=== PATIENT | male | born 1950 | race African-American/Black ===

== ENCOUNTER 2022-12-28 10:18 | Emergency (ER) | payer OTHER ==
[~2022-12-28] VITALS: Ht 170.2 cm; Wt 76.4 kg
--- NOTE | 2022-12-28 10:19 | NUR ---
BIBA BLS TO ER BED 5
[2022-12-28 10:20] VITALS: BP 176/85
--- NOTE | 2022-12-28 10:30 | NUR ---
72YO MALE PT VICTOR M [facility] C/O INCREASED R HAND SWELLING [id number]. PER DAUGHTER, PT W/ ONGOING INTERMITTENT EPISODES X1YEAR. HAND PRESENTS WITH MILD SWELLING , CAP REFILL <3 THROUGHOUT. DENIES PAIN AT THIS TIME, INJURY, NUMBING OR LOSS OF SENSATION. PT UNABLE TO BEND WRIST D/T SWELLING. 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 AMB W/ STEADY GAIT HX: HTN, DIABETES, HLD, STROKE NKA
[2022-12-28] MEDS ORDERED: PRED20TA5 PO (13:12)
[2022-12-28] MEDS ORDERED: IBUP-2213 PO (13:12)
--- NOTE | 2022-12-28 13:24 | NUR ---
[facility] CONTACTED. REPORT GIVEN TO SILVIA MILLER. PER SILVIA, TRANSPORTATION ETA 1430.
--- NOTE | 2022-12-28 13:59 | NUR ---
PT MOVED TO CHAIR C AWAITING TRANSPORT.
[2022-12-28 14:40] VITALS: BP 148/76
--- NOTE | 2022-12-28 14:40 | NUR ---
Patient discharged with v/s stable. Written and verbal after care instructions FOR OSTEOARTHRITIS given and explained. Patient alert, oriented and verbalized understanding of instructions. Ambulatory with to shelter. All questions addressed prior to discharge. ID band removed. Patient advised to follow up with PMD. Rx of IBUPROFEN AND DELTASONE given. Opportunity to ask questions provided and answered.
--- NOTE | 2022-12-28 14:41 | NUR ---
DAUGHTER CALLED . NO ANSWER. UNABLE TO LEAVE VOICEMAIL- NO VOICEMAIL SET UP
--- NOTE | 2022-12-28 14:42 | NUR ---
The patient's care was reviewed and supervised by Aparna Murguia RN.
== END 2022-12-28 14:40 | disposition home or self-care (01) ==
LOC: MED 10:18
DX: M79.89 Other specified soft tissue disorders (principal); E11.9 Type 2 diabetes mellitus without complications; I10 Essential (primary) hypertension; E78.5 Hyperlipidemia, unspecified; Z86.73 Personal history of transient ischemic attack (TIA), and cerebral infarction without residual deficits
CPT/HCPCS: 99285

== ENCOUNTER 2024-01-12 10:47 | Emergency (ER) | payer OTHER, MEDICAID ==
[~2024-01-12] VITALS: Ht 172.7 cm; Wt 74.8 kg
[~2024-01-12 10:47] MED LIST: IBUP-2213 PO; PRED20TA5 PO
[2024-01-12 10:49] VITALS: BP 132/71; PULSE 87; RESP 16; TEMP 97.9; O2SAT 99
[2024-01-12] MEDS ORDERED: DOCU-299 PO (12:03)
[2024-01-12] MEDS ORDERED: HYDR-2734 TP (12:03)
[2024-01-12 12:20] VITALS: BP 132/71; PULSE 87; RESP 16; TEMP 97.9; O2SAT 99
== END 2024-01-12 12:20 | disposition home or self-care (01) ==
LOC: MED 10:47
DX: K64.9 Unspecified hemorrhoids (principal); M79.674 Pain in right toe(s); E11.9 Type 2 diabetes mellitus without complications; I10 Essential (primary) hypertension; Z79.1 Long term (current) use of non-steroidal anti-inflammatories (NSAID); Z79.899 Other long term (current) drug therapy; Z98.890 Other specified postprocedural states; Z86.73 Personal history of transient ischemic attack (TIA), and cerebral infarction without residual deficits
CPT/HCPCS: 99283